=== PATIENT | male | born 1935 | race Caucasian/White ===

== ENCOUNTER 2019-04-08 17:38 | Emergency (ER) | payer MEDICARE ==
[~2019-04-08] VITALS: Ht 182.9 cm; Wt 73.6 kg
[2019-04-08] MEDS ORDERED: propofol 10mg/ml 20ml vial IV ONE (18:05)
--- NOTE | 2019-04-08 18:47 | NUR ---
Patient is resting comfortably in bed with at bedside. Patient is on cardiac, end tidal, spo2, and bp monitoring. Respiratory at the bedside. Waiting for MD to begin procedure.
--- NOTE | 2019-04-08 19:17 | NUR ---
Patient is alert and oriented x4 and reports that his shoulder is feeling much better. Immobilizer placed while he was still sedated.
[2019-04-08 19:42] VITALS: BP 141/88
== END 2019-04-08 19:43 | disposition home or self-care (01) ==
LOC: ER 17:39
DX: S43.085A Other dislocation of left shoulder joint, initial encounter (principal); S50.02XA Contusion of left elbow, initial encounter; E11.9 Type 2 diabetes mellitus without complications; Z95.0 Presence of cardiac pacemaker; W01.0XXA Fall on same level from slipping, tripping and stumbling without subsequent striking against object, initial encounter; Y93.89 Activity, other specified; Y92.89 Other specified places as the place of occurrence of the external cause; Y99.8 Other external cause status
CPT/HCPCS: 23650; 73030; 99152; 99153; 99285; J2704

== ENCOUNTER 2019-08-24 09:19 | Outpatient (CLI) | payer MEDICARE | END 2019-08-24 23:59 | disposition home or self-care (01) | LOC: RAD 09:19 | PROVIDERS: ATTEND Internal Medicine Endocrinology, Diabetes & Metabolism | DX: E21.3 Hyperparathyroidism, unspecified (principal); Z87.891 Personal history of nicotine dependence | CPT/HCPCS: 78071; A9500 ==